=== PATIENT | male | born 1945 | race Caucasian/White ===

== ENCOUNTER 2020-12-09 19:00 | Observation (INO) | payer MEDICARE, SELFPAY ==
[2020-12-09] VITALS (19 sets, daily range): BP systolic 157–191; BP diastolic 81–115; PULSE 71–95; RESP 18–22; TEMP 36.6–36.8; O2SAT 95–98
--- NOTE | ~2020-12-09 | XR_ITS ---
EXAMINATION: XR chest 2V DATE: 12/09/2020 20:02 INDICATION: Altered mental status TECHNIQUE: AP and lateral views of the chest are obtained. COMPARISON: 07/05/2018 FINDINGS: The lungs are free of acute opacities. There is no pleural effusion or pneumothorax. The ca rdiomediastinal silhouette is normal. There is moderate thoracic spondylosis. IMPRESSION: 1. No acute cardiopulmonary abnormality. Reviewed, dictated and finalized at location A. CTOR PAYMENT
--- NOTE | ~2020-12-09 | CT_ITS ---
EXAMINATION: CT brain wo con INDICATION: Altered mental status COMPARISON: None TECHNIQUE: Standard unenhanced head CT. The dose-length product (DLP) was 605.33 mGy-cm. The mA was a djusted according to patient size. Iterative reconstruction technique was employed. FINDINGS: There is no acute intraparenchymal hemorrhage. No evidence of mass lesion. No evidence of a cute infarction. There is mild periventricular and subcortical hypodensity probably related to small vessel ischemic disease. There is mild prominence of the sulci and ventricles related to cerebral atr ophy. Intracranial calcified cerebral atherosclerosis is noted. There are no extra-axial collections. There is no mass effect or midline shift. The orbits and soft tissues are unremarkable. The visuali zed sinuses and mastoid air cells are well aerated. IMPRESSION: 1. No acute intracranial abnormality. 2. Age related findings. Reviewed, dictated and finalized at location A. N JOBS TRAINER
--- NOTE | ~2020-12-09 | MR_ITS ---
EXAMINATION: MR brain/brain stem wo/w con EXAM DATE: 12/10/2020 09:49 INDICATION: Altered mental status. TECHNIQUE: Magnetic resonance imaging (MRI) of the brain/brain stem obtained without contrast. Sagit catarina T1, axial diffusion, gradient echo (T2*), T1, T2, FLAIR sequences obtained. Patient was then inj ected with 14 cc intravenous Multihance contrast. Axial and coronal postcontrast T1 weighted sequence s obtained. There is no prior study for comparison. FINDINGS: There are no areas of restricted diffusion to suggest acute infarction. There is no acute hemorrhage seen on the T2*, a hemosiderin sensitive sequence. No intraparenchymal brain mass lesion. There is mild periventricular and subcortical T2/FLAIR signal hyperintensity, nonspecific but probab ly related to small vessel ischemic disease (microangiopathy). There is moderate prominence of the sulci and ventricles related to cerebral atrophy. There are no extra-axial collections. Flow voids are seen in the cerebral arteries on the T2-weighted sequences consistent with their expected patenc y. The orbits are unremarkable. Soft tissue is unremarkable. There are no areas of abnormal enhanc ement on the postcontrast images. IMPRESSION: 1. No acute intracranial findings. 2. Chronic age related findings. Reviewed, dictated and finalized at location A. BOAT
--- NOTE | 2020-12-09 19:03 | ECG_ITS ---
Measurements Intervals [place] Rate: 77 P: 82 UT: 152 QRS: -86 QRSD: 113 T: 81 QT: 355 QTc: 402 Interpretive Statements SINUS RHYTHM INCOMPLETE RIGHT BUNDLE BRANCH BLOCK LEFT ANTERIOR FASCICULAR BLOCK BASELINE ARTIFACT- I, III, AVL, AVF ABNORMAL ECG Electronically Signed On 12-09-2020 20:01:20 BREASTFEEDING PEER COUNSELOR by Steven Barnett D.O.
[2020-12-09 19:14] LABS: Basophils Percent Auto 0.5 % (0.2-1.2); Eosinophils Percent Auto 0.6 % (0-4.4); Hematocrit 46.1 % (42.0-52.0); Hemoglobin 15.2 g/dL (14.0-18.0); Immature Granulocyte Absolute 0.02 K/mm3 (0.00-0.031); Immature Granulocyte Percent A 0.3 % (0-0.5); Lymphocytes Absolute Auto 0.93 K/mm3 (0.9-3.2); Lymphocytes Percent Auto 14.2 % (18.3-44.2); Mean Corpuscular Hemoglobin 32.8 pg (26-34); Mean Corpuscular Volume 99.6 fl (80-100); Mean Platelet Volume 9.4 fl (7.4-10.4); Monocytes Absolute Auto 0.6 K/mm3 (0.1-0.6); Monocytes Percent Auto 9.7 % (2.6-8.5); Neutrophils Absolute Auto 4.9 K/mm3 (1.3-6.7); Neutrophils Percent Auto 74.7 % (45.5-73.1); Platelet Count Result 223 k/mm3 (150-375); Red Blood Count 4.63 M/mm3 (4.6-6.20); Red Cell Distribution Width 13.2 % (11.5-14.5); White Blood Count 6.6 K/mm3 (4.5-10.0)
[2020-12-09 19:27] LABS: Alanine Aminotransferase 34 U/L (4-50); Albumin Level 4.2 g/dL (3.5-5.1); Alkaline Phosphatase 53 U/L (38-126); Anion Gap 1 mmol/L (8-16); Aspartate Amino Transferase 30 U/L (17-59); Bilirubin,Total 0.8 mg/dL (0.2-1.3); Blood Urea Nitrogen 17 mg/dL (9-20); Calcium 9.2 mg/dL (8.4-10.2); Carbon Dioxide 33 mmol/L (22-30); Chloride 101 mmol/L (98-107); Estimated CRCL calculation 72 ml/min; Estimated Glomerular Filt Rate > 60; Glucose 91 mg/dL (75-110); Sodium 135 mmol/L (137-145)
[2020-12-09 19:47] LABS: Add Urine Microscopic? YES; Appearance Urine Clear (Clear); Bilirubin Urine Negative (Negative); Blood Urine 1+ (Negative); Color Urine Yellow (Yellow); Glucose Urine UA Negative (Negative); Ketones Urine Negative (Negative); Leukocyte Esterase Ur Negative LEU/UL (Negative); Mucus Urine Rare /lpf; Nitrate Urine Negative (Negative); Protein Urine Negative (Negative); RBC Urine 0-2 /hpf (0-2); Specific Grav Ur 1.011 (1.001-1.035); Urobilinogen Urine Negative mg/dL (<2.0); WBC Urine 0-3 /hpf
--- NOTE | 2020-12-09 19:49 | PC.NURSE ---
Patient taken to radiology.
--- NOTE | 2020-12-09 19:53 | ED.AMS ---
HPI - Altered Mental Status General Chief Complaint: Altered Mental Status Stated Complaint: altered mental status Time Seen by Provider: 12/09/20 19:04 History of Present Illness HPI narrative: Patient is a 75-year-old male who was brought in by EMS from his home due to altered mental status. It is thought that the patient's called a wellness check on her after not talking to them since yesterday. Patient is oriented to self but not to place or time. He is unsure what is going on. Neighbors also did not seem to know anything about the patient which he had been up to. No evidence of trauma or injury. Related Data Home Medications Medication Instructions Recorded Confirmed budesonide-formoterol [Symbicort] 2 inh INHALATION BID 12/10/20 12/10/20 fluoxetine 20 mg PO DAILY 12/10/20 12/10/20 Allergies Allergy/AdvReac Type Severity Reaction Status Date / Time No Known Allergies Allergy Verified 12/10/20 00:23 Review of Systems Review of Systems: ROS unobtainable: Yes unobtainable due to medical condition [facility] Past Medical History Medical History (Updated 12/10/20 @ 07:30 by José Manuel Benton MD) Depression Emphysema of lung Surgical History Surgical History (Updated 12/10/20 @ 06:51 by Emily Trimble DO) Ganglion cyst of finger of left hand surgical removal History of testicular surgery he had bilateral surgery due to testicular torsion Family History Family History (Updated 12/10/20 @ 06:52 by Emily Trimble DO) Mother , age 89 Artificial pacemaker CHF (congestive heart failure) Father , age 75 CHF (congestive heart failure) Social History Social History (Updated 12/10/20 @ 06:57 by Emily Trimble DO) Social History: He lives in [place] with his . They have 3 adult children. 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 used to smoke between 1 and 2 packs of cigarettes per day but quit smoking at age 68. He drank heavily for a few years but quit when he was in his late 20s or early 30s. He denies any illicit substance use. He is independent in activities of daily living. Primary care physician: Dr. Nabil Steele Code status: Full code Smoking packs per day: 1.5 Smoking cigarettes per day: 30.0 Years smoked: 49 Smoking pack-years: 73.50 Smoking status: Former smoker Tobacco type: cigarettes Smoking end date: 10/07/11 Alcohol intake: never Substance use: never Gender identity (if verbalized by the patient): Male Sexual Orientation (if Verbalized by the Patient): Straight or Heterosexual Spiritual care concerns: No Exam Narrative: Exam Narrative: GENERAL: Well-appearing, well-nourished, and in no acute distress. HEAD: Normocephalic, atraumatic. ENT: Mucous membranes moist. CHEST: Clear to auscultation. No respiratory distress. HEART: Regular rate and rhythm. Normal peripheral pulses. ABDOMEN: Soft, nontender, nondistended. EXTREMITIES: Normal range of motion. No edema. SKIN: Warm, dry, no rash. NEURO: Cranial nerves II through XII intact. No upper or lower extremity drift. Alert and oriented x2. Course Course Emergency Course: Patient son present. Reports that EMS was called by the patient's because she was talking to him on the phone and he had no idea what was going on. Patient has no history of dementia. The patient's has been in the hospital for the last 2 weeks due to pulmonary hypertension and liver tumor ablation. He has been there to visit her and today he had no clue where she was or what was going on which alarmed her. Vital Signs Vital signs: Vital Signs Temperature 98.3 F 12/09/20 18:58 Pulse Rate 84 12/09/20 18:58 Respiratory Rate 18 12/09/20 18:58 Pulse Oximetry 96 12/09/20 18:58 Temperature 97.9 F 12/10/20 06:59 Pulse Rate 16 L 12/10/20 06:59 Respiratory Rate 14 12/10/20 0
--- NOTE | 2020-12-09 20:13 | PC.NURSE ---
Patient ambulated to the bathroom with a steady gait.
[2020-12-10] VITALS (11 sets, daily range): BP systolic 115–165; BP diastolic 75–102; PULSE 16–98; RESP 14–20; TEMP 36.6–36.8; O2SAT 92–97; BMI 18.1
--- NOTE | 2020-12-10 00:05 | ADMGEN ---
This patient, Chet Mao, was admitted to Medical Room 344-01. Patient/family oriented to hospital policies and general routines including ID bracelet, bed and alarms, visiting hours, pain management, procedures, bathroom and other care routines, personal items, smoking policy, room service/diet, and visiting hours. Information on how to activate the Rapid Response Team has been discussed. Patient/Family are encouraged to report perceived risks to care and to ask questions if they do not understand what they are told or what they should do.
[2020-12-10] MEDS: ACETAMINOPHEN 325 MG TABLET 650 MG PO ×2 (01:05→21:02)
--- NOTE | 2020-12-10 04:59 | PM.IMHP ---
H&P: HPI History of Present Illness Date/Time: 12/10/20 05:30 Chief Complaint: Altered mental status Narrative: Chet Mao is a 75 year old male with a past medical history of emphysema who presented to the ER from home with altered mental status. Evidently the patient has been living at home alone for the last 2 weeks well as is in an outside hospital due to pulmonary hypertension and liver tumor ablation. The patient was supposed to go and visit his today but he did not recall that she was in the hospital. When she tried to call him and the patient had no idea what was going on. So his requested a safety check. When EMS arrived at patient's house the patient was oriented to person but was not oriented to place or time. The patient did not have any evidence of trauma or injury. at the time of my evaluation the patient is alert and oriented to person place time and is past medical history. However he cannot remember why exactly he was brought to the hospital on initial questioning. But after he was reminded of the confusion he did recall being confused. He still thinks that he dropped his off at [facility] 2 days ago. He does not recall the ride to the hospital in the ambulance. He does recognize that he is in [facility] currently. He is oriented to the current situation but has very limited recall of the past 24 hours. He has not had any difficulty with ambulation and has no localizing neurologic deficits. He denies any headache or visual changes. he is an extremely good historian regarding his past medical history and social history. He remembers the name of his primary care physician stated that he called his primary care physician on the to request that his medications be refilled. He has not picked up his medications due to his episode of confusion on the . He can even tell me the date of his next doctor's appointment which is December 30. He denies being depressed currently but did have a bout of depression back when he retired. He reports that his mood has been stable. He has had some extra stressors given that his is in the hospital. He denies a history of seizures or injury. Oddly enough the patient realizes that he did not take his home medications yesterday because he had not picked up the refills from the pharmacy. Nursing staff reports that the patient is not as distracted is seems more focused at the time of my evaluation. Review of Systems Review of Systems: Narrative: 12 systems were reviewed with pertinent positives and negatives per HPI. Except as documented in the HPI, all other systems were reviewed and are negative. [facility] Past Medical History Medical History (Updated 12/10/20 @ 07:09 by Emily Trimble DO) Depression Emphysema of lung Surgical History Surgical History (Updated 12/10/20 @ 06:51 by Emily Trimble DO) Ganglion cyst of finger of left hand surgical removal History of testicular surgery he had bilateral surgery due to testicular torsion Family History Family History (Updated 12/10/20 @ 06:52 by Emily Trimble DO) Mother , age 89 Artificial pacemaker CHF (congestive heart failure) Father , age 75 CHF (congestive heart failure) Social History Social History (Updated 12/10/20 @ 06:57 by Emily Trimble DO) Social History: He lives in [place] with his . They have 3 adult children. 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 used to smoke between 1 and 2 packs of cigarettes per day but quit smoking at age 68. He drank heavily for a few years but quit when he was in his late 20s or early 30s. He denies any illicit substance use. He is independent in activities of daily living. Primary care physician: Dr. Nabil Steele Code status: Full code Smoking packs per day: 1.5 Smoking cigarettes per day: 30.0 Years smoke
[2020-12-10] MEDS: FLUoxetine HCL 20 MG CAPSULE PO (10:10)
--- NOTE | 2020-12-10 10:49 | PM.IMPN ---
Progress Note: A&P Assessment and Plan (1) Transient global amnesia: Code(s): G45.4 - Transient global amnesia Status: Acute (2) Elevated blood pressure reading: Code(s): R03.0 - Elevated blood-pressure reading, without diagnosis of hypertension Status: Acute (3) Hypertension: Code(s): I10 - Essential (primary) hypertension Status: Acute (4) Depression: Code(s): F32.9 - Major depressive disorder, single episode, unspecified Status: Chronic (5) Emphysema of lung: Code(s): J43.9 - Emphysema, unspecified Status: Chronic Additional Plan # Transient global amnesia: noted to be hypertensive. CT brain with age related changes. has metabolic alkalosis noted on his labs. likely from his underlying COPD. no signs of infection. ongoing stress with his getting admitted to the hospital. Brain MRI negative for stroke. noted intracranial atheroscelrosis. will place him on aspirin 81 mg po daily and check lipid profile. start atorvastatin 5 mg bedtime. he has unknown intolerance to statin, willign to start small dose of statin. control of BP reitered with the pateint. will add amlod 5 mg po daily. fu with PCP and/or neurology as op basis. # HTN: uncontrolled. MRI brain negative.will add amlodipine 5 mg po daily and watch his blood pressure. # COPD: on symbicort. continue same. # Depression: on fluoxetine. continue same. # DVT proph: ambulate, continue mechanical # Full code status # diet: low salt diet. Subjective Date/time seen: 12/10/20 10:49 no overnight events, he does not recollection of events that has happened yesterday. he has spoken to his and son today and feels better not quite back to normal yet. no weakness inleg or arms, no fever, chills. he has chronic sob and uses symbicort. he has been diagnosed with hyperlipidemia in the past but did not take it as it caused him some problem which he cannot describe what it is. Review of Systems Constitutional: Constitutional: Denies body ache(s), Denies chills, Denies difficulty sleeping, Denies fatigue, Denies lethargy, Denies night sweats and Denies weakness Eyes: Eyes: Denies blurry vision and Denies photophobia ENT: Denies epistaxis and Denies nasal discharge Cardiovascular: Cardiovascular: Denies chest pain and Denies leg edema Respiratory: Respiratory: Denies cough and Reports dyspnea Gastrointestinal: Gastrointestinal: Denies abdominal pain and Denies constipation Genitourinary: Genitourinary: Denies dysuria and Denies urinary hesitancy Musculoskeletal: Musculoskeletal: Denies back pain and Denies neck pain Integumentary/Breasts: Skin/Breast: Denies dry skin and Denies skin pain Neurologic: Denies Abnormal speech present, Reports confusion, Denies headache(s) and Denies numbness Psychiatric: Psychiatric: Denies behavioral changes and Denies suicidal ideation Exam Narrative: Exam Narrative: General: No acute distress, thin body habitus, appears stated age HEENT: mucous membranes are moist, no oral pharyngeal erythema, multiple dental caries, pupils are equal and reactive, no scleral icterus Respiratory: clear to auscultation bilaterally, no increased work of breathing Cardiovascular: regular rate, regular rhythm, no murmurs, 2+ bilateral radial pedal pulses Gastrointestinal: soft, nontender, nondistended, positive bowel sounds Skin: no jaundice, no pallor Musculoskeletal: 5/5 telecommunications administrator strength bilaterally, Neurological: alert and oriented person place time, speech is clear and fluent, cranial nerves 2-12 grossly intact Psychiatric: appropriate mood and affect, pleasant and cooperative, Hematologic/lymphatic: no petechiae, no bruising, no lymphadenopathy Objective Data Vital Signs Vital Signs: Vital Signs - 24 hr 12/09/20 18:58 12/09/20 19:02 12/09/20 19:04 Temperature 98.3 F Pulse Rate 84 78 Respiratory Rate 18 21 H Blood Pressure 175/114 H Pulse Oximetry 96 97 /05
[2020-12-10] MEDS: amLODIPine BESYLATE 5 MG TABLET PO (13:52)
[2020-12-10] MEDS: ATORVASTATIN 5 MG TABLET PO (20:48)
[2020-12-11] VITALS: PULSE 69
[2020-12-11 04:00] VITALS: PULSE 73
[2020-12-11 05:37] LABS: Basophils Percent Auto 0.5 % (0.2-1.2); Eosinophils Absolute Auto 0.2 K/mm3 (0-0.3); Eosinophils Percent Auto 2.7 % (0-4.4); Hematocrit 42.5 % (42.0-52.0); Hemoglobin 14.1 g/dL (14.0-18.0); Immature Granulocyte Absolute 0.02 K/mm3 (0.00-0.031); Immature Granulocyte Percent A 0.4 % (0-0.5); Lymphocytes Absolute Auto 1.59 K/mm3 (0.9-3.2); Lymphocytes Percent Auto 28.5 % (18.3-44.2); Mean Corpuscular HGB Conc 33.2 g/dl (32-36); Mean Corpuscular Hemoglobin 32.3 pg (26-34); Mean Corpuscular Volume 97.5 fl (80-100); Mean Platelet Volume 9.1 fl (7.4-10.4); Monocytes Absolute Auto 0.6 K/mm3 (0.1-0.6); Monocytes Percent Auto 10.2 % (2.6-8.5); Neutrophils Absolute Auto 3.2 K/mm3 (1.3-6.7); Neutrophils Percent Auto 57.7 % (45.5-73.1); Platelet Count Result 215 k/mm3 (150-375); Red Blood Count 4.36 M/mm3 (4.6-6.20); Red Cell Distribution Width 13.2 % (11.5-14.5); White Blood Count 5.6 K/mm3 (4.5-10.0)
[2020-12-11 05:53] LABS: Alanine Aminotransferase 24 U/L (4-50); Albumin Level 3.6 g/dL (3.5-5.1); Alkaline Phosphatase 47 U/L (38-126); Anion Gap 1 mmol/L (8-16); Aspartate Amino Transferase 21 U/L (17-59); Bilirubin,Total 0.7 mg/dL (0.2-1.3); Blood Urea Nitrogen 16 mg/dL (9-20); Calcium 9.1 mg/dL (8.4-10.2); Carbon Dioxide 34 mmol/L (22-30); Chloride 104 mmol/L (98-107); Cholesterol 231 mg/dL (0-200); Estimated CRCL calculation 75 ml/min; Estimated Glomerular Filt Rate > 60; Glucose 90 mg/dL (75-110); HDL Direct 87 mg/dL; Potassium 3.3 mmol/L (3.4-5.0); Sodium 139 mmol/L (137-145); Triglycerides 65 mg/dL (<150)
[2020-12-11 05:59] VITALS: BP 104/80; PULSE 85; RESP 14; TEMP 36.4; O2SAT 98
[2020-12-11 06:04] LABS: LDL Cholesterol Direct 109 mg/dL
[2020-12-11 08:00] VITALS: PULSE 62; PULSE 85; RESP 14; O2SAT 98
[2020-12-11] MEDS: ASPIRIN 81 MG ENTERIC TABLET PO (08:37)
[2020-12-11] MEDS: FLUoxetine HCL 20 MG CAPSULE PO (08:37)
[2020-12-11] MEDS: amLODIPine BESYLATE 5 MG TABLET PO (08:37)
[2020-12-11] MEDS: ACETAMINOPHEN 325 MG TABLET 650 MG PO (08:48)
--- NOTE | 2020-12-11 09:00 | PM.DS ---
DS: Admitting Diagnosis Admitting Diagnosis Admitting Diagnosis: amnesia DS: Discharge Diagnosis Discharge Diagnosis (1) Transient global amnesia: Code(s): G45.4 - Transient global amnesia Status: Acute (2) Hypertension: Code(s): I10 - Essential (primary) hypertension Status: Acute Assessment and Plan: # Transient global amnesia: noted to be hypertensive. CT brain with age related changes. has metabolic alkalosis noted on his labs. likely from his underlying COPD. no signs of infection. ongoing stress with his getting admitted to the hospital. Brain MRI negative for stroke. noted intracranial atheroscelrosis. strted on aspirin 81 mg po arcos alog with atorastatin 5 g daily. he states he had some isue with statin in the past. willing to start small dose of statin. control of BP reitered. started on amlod 5 mg po daily. bp was good afer that. planned to lower the dose to 2.5 mg po daily. advisd he should follw up with his PCP in 1 week to recheck his bood pressure ad monitor. his lipid profile was checked and was 21 with LD of 109. # HTN: uncontrolled. MRI brain negative.started on amlod 5. [facility] # COPD: on symbicort. continue same. # Depression: on fluoxetine. continue same. # DVT proph: ambulate, continue mechanical # Full code status # diet: low salt diet. DS: Summary Hospital Course Reason for hospitalization: amnesia Hospital Course: # Transient global amnesia: noted to be hypertensive. CT brain with age related changes. has metabolic alkalosis noted on his labs. likely from his underlying COPD. no signs of infection. ongoing stress with his getting admitted to the hospital. Brain MRI negative for stroke. noted intracranial atheroscelrosis. strted on aspirin 81 mg po arcos alog with atorastatin 5 g daily. he states he had some isue with statin in the past. willing to start small dose of statin. control of BP reitered. started on amlod 5 mg po daily. bp was good afer that. planned to lower the dose to 2.5 mg po daily. advisd he should follw up with his PCP in 1 week to recheck his bood pressure ad monitor. his lipid profile was checked and was 21 with LD of 109. # HTN: uncontrolled. MRI brain negative.started on amlod 5. will lower to 2.5 m po daily at disc[facility]. # COPD: on symbicort. continue same. # Depression: on fluoxetine. continue same. # DVT proph: ambulate, continue mechanical # Full code status # diet: low salt diet. Status at Discharge Functional status at discharge: independent ambulation Overall status at discharge: patient is back to baseline Time Spent with Patient Time attestation: Total time spent providing and/or coordinating discharge services: 31 mins Exam Narrative: Exam Narrative: General: No acute distress, thin body habitus, appears stated age HEENT: mucous membranes are moist, no oral pharyngeal erythema, multiple dental caries, pupils are equal and reactive, no scleral icterus Respiratory: clear to auscultation bilaterally, no increased work of breathing Cardiovascular: regular rate, regular rhythm, no murmurs, 2+ bilateral radial pedal pulses Gastrointestinal: soft, nontender, nondistended, positive bowel sounds Skin: no jaundice, no pallor Musculoskeletal: 5/5 chief drafter strength bilaterally, Neurological: alert and oriented person place time, speech is clear and fluent, cranial nerves 2-12 grossly intact Psychiatric: appropriate mood and affect, pleasant and cooperative, Hematologic/lymphatic: no petechiae, no bruising, no lymphadenopathy DS: Data Data Completed and Pending Labs on day of discharge: Labs from last 24 hours 12/11/20 12/11/20 05:27 05:27 WBC 5.6 RBC 4.36 L Hgb 14.1 Hct 42.5 MCV 97.5 MCH 32.3 MCHC 33.2 RDW 13.2 Plt Count 215 MPV 9.1 Immature Gran % (Auto) 0.4 Neut % (Auto) 57.7 Lymph % (Auto) 28.5 [place] % (Auto) 10.2 H Eos % (Auto) 2.7 Baso % (Auto) 0.5 Lymph # (Au
[2020-12-11] MEDS: POTASSIUM CHLORIDE 20 MEQ TABLET 40 MEQ PO (09:48)
== END 2020-12-11 14:00 | disposition home or self-care (01) ==
LOC: ANHED 19:19 → ANH3MED 23:10
PROVIDERS: Emergency Medicine; Admitting Provider Internal Medicine; Emergency Provider Emergency Medicine; PCP Internal Medicine; Visit Provider Internal Medicine
DX: G45.4 Transient global amnesia (principal); I10 Essential (primary) hypertension; J43.9 Emphysema, unspecified; F32.9 Major depressive disorder, single episode, unspecified; R06.02 Shortness of breath; E78.5 Hyperlipidemia, unspecified; Z87.891 Personal history of nicotine dependence
CPT/HCPCS: 36415; 70450; 70553; 71046; 80053; 80061; 81001; 85025; 93005; 97165; 99285; A9270; A9577; G0378